=== PATIENT | male | born 1965 | race African-American/Black ===

== ENCOUNTER → 2020-03-21 | Day surgery (SDC) | payer MEDICARE, OTHER, MEDICAID ==
[~2020-03-21] MED LIST: CALCITRIOL0.25 MCG PO; CILOSTAZOL 100100 M1 PO; COLACE100 MG PO; FLEXERIL PO; HYDRALAZINE HC100 MG PO; LASIX 80 MG TAB80 MG PO; LEVEMIR100 UNIT/1 SUBQ; LIPITOR40 MG PO; LYRICA 75 MG CA75 MG PO; MUPIROCIN1 GM TOP; NORCO 5-325 TA1 EAC2 PO; NORVASC10 MG PO; NOVOLIN N100 UNIT/1 SUBQ; NOVOLOG100 UNIT/1 SUBQ; ONDANSETRON HCL4 M2 PO; PLAVIX 75 MG TA75 MG PO; POTASSIUM20 PO; PREDNISONE 20 M20 M1 PO; PRINIVIL40 MG PO; PROTONIX40 M1 PO; REGLAN 5 MG TAB5 MG PO; RENVELA800 MG PO; ST. JOSEPH ASPI81 MG PO; VITAMIN D PO
[2020-03-21 10:51] LABS: CALCIUM 8.9 mg/dL (8.5-10.1); CREATININE 7.1 mg/dL (0.6-1.3); POTASSIUM 3.9 mmol/L (3.5-5.1)
--- NOTE | 2020-03-21 16:22 | EKG ---
[place] [address] ELECTROCARDIOGRAM REPORT Name: OWEN MA JR Room: [facility]#: [id number] Admission: 03/21/20 Attend Phys: Rishabh Cardenas Discharge: Date of : 61 Date of Service: 03/21/20 1025 Report #: [id number] THIS REPORT FOR: //name// [facility] Test Date: 2020-03-21 Test Time: 10:25:48 Pat Name: OWEN MA Department: Room: Gender: Take Down Inspector: : 1965 Requested By: Rishabh Rosario Order Number: [id number] Alberto MD: Ramiro De La O Measurements Intervals [place] Rate: 82 P: 63 PA: 165 QRS: 27 QRSD: 84 T: 117 QT: 419 QTc: 490 Interpretive Statements Sinus rhythm Nonspecific T abnormalities, lateral leads ST elevation, consider anterior ischemia Borderline prolonged QT interval No previous ECG available for comparison Electronically Signed On 03-21-2020 16:20:13 CDT by Ramiro De La O [email or web address] <ELECTRONICALLY SIGNED> By: Ramiro De La O MD, [facility] 03/21/20 1620 1025 1025 Ramiro De La O MD, [facility] /EPI
--- NOTE | 2020-03-25 11:48 | OP ---
[facility] [address] [place] [address] OPERATIVE REPORT Name: OWEN MA Room: [facility]#: [id number] Admission: 03/21/20 Attend Phys: Rishabh Rosario Discharge: Date of : 61 Report #: [id number] THIS REPORT FOR: //name// cc: Chuck Padgett Matthew DO ~ THIS REPORT FOR: //name// CC: Rishabh Bermudez Casillas DATE OF SERVICE: 03/21/2020 PREOPERATIVE DIAGNOSIS: End-stage renal disease. POSTOPERATIVE DIAGNOSIS: End-stage renal disease. PROCEDURE: Removal of tunneled intraperitoneal catheter. SURGEON: Rishabh Rosario MD ANESTHESIA: General. ESTIMATED BLOOD LOSS: Minimal. SPECIMEN: None. DESCRIPTION OF PROCEDURE: After informed consent was obtained, the patient was brought to the operating room and placed supine. SCDs were placed and working, preoperative antibiotics were administered, general anesthesia was induced. I first made a counter incision over the internal cuff site. Cautery dissection was made down to the fascia. The cuff was freed up from the fascia and released. I then extended the opening of the catheter at the skin by 1 cm and I was able to dissect away the external cuff. The catheter pulled out easily after that. The fascial hole was closed with a [id number] 0 Vicryl suture. Skin was closed with 4-0 Monocryl. Incisions were sealed with Dermabond. COMPLICATIONS: None. DISPOSITION: The patient was taken to recovery in satisfactory condition. <ELECTRONICALLY SIGNED> By: Rishabh Rosario MD 03/25/20 1148 [id number] Rosario MD /nt
== END | disposition home or self-care (01) ==
LOC: M.SUR 07:36
PROVIDERS: Surgery
DX: I12.0 Hypertensive chronic kidney disease with stage 5 chronic kidney disease or end stage renal disease (principal); E11.22 Type 2 diabetes mellitus with diabetic chronic kidney disease; N18.6 End stage renal disease; G47.30 Sleep apnea, unspecified; Z11.59 Encounter for screening for other viral diseases; Z98.890 Other specified postprocedural states; Z79.899 Other long term (current) drug therapy